=== PATIENT | male | born 1995 | race Asian ===

== ENCOUNTER 2017-01-01 12:56 | Outpatient (CLI) | payer OTHER ==
[2017-01-01 13:40] LABS: BASOPHILS # (AUTO) 0.2 K/uL (0.00-0.22); EOSINOPHILS # (AUTO) 0.3 K/uL (0-0.4); EOSINOPHILS % (AUTO) 4.1 % (0.0-4.0); HEMATOCRIT 43.4 % (36-52); HEMOGLOBIN 14.4 g/dL (12.0-18.0); LYMPHOCYTES # (AUTO) 1.9 K/uL (2.0-11.5); LYMPHOCYTES % (AUTO) 31.1 % (20.5-51.1); MEAN CORPUSCULAR HEMOGLOBIN 29 pg (27-31); MEAN CORPUSCULAR HGB CONC 33 g/dL (33-37); MEAN CORPUSCULAR VOLUME 88 fL (80-94); MONOCYTES # (AUTO) 0.4 K/uL (0.8-1.0); MONOCYTES % (AUTO) 6.5 % (1.7-9.3); NEUTROPHILS # (AUTO) 3.4 K/uL (1.8-7.7); NEUTROPHILS % (AUTO) 55.3 % (42.2-75.2); PLATELET COUNT (AUTO) 250 K/uL (140-450); RED BLOOD CELL COUNT(AUTO) 4.92 MIL/uL (4.20-6.10); RED CELL DISTRIBUTION WIDTH 13.1 % (11.6-13.7); WHITE BLOOD COUNT (AUTO) 6.2 K/uL (4.8-10.8)
[2017-01-01 13:41] LABS: APPEARANCE,URINE CLEAR (CLEAR); BILIRUBIN,URINE NEGATIVE (NEGATIVE); BLOOD, URINE NEGATIVE (NEGATIVE); COLOR,URINE YELLOW (YELLOW); LEUKOCYTE ESTERASE ,URINE NEGATIVE (NEGATIVE); NITRITE, URINE NEGATIVE (NEGATIVE); PROTEIN,URINE NEGATIVE (NEGATIVE); UGLUCOSE NEGATIVE (NEGATIVE); UROBILINOGEN,URINE 0.2 EU/dL (0.2 - 1)
[2017-01-01 14:15] LABS: ALBUMIN 3.9 g/dL (3.4-5.0); ANION GAP 13.4 (8-16); CALCIUM 8.5 mg/dL (8.5-10.1); CARBON DIOXIDE 29.8 mmol/L (21-32); FREE T4 (FREE THYROXINE) 0.83 ng/dL (0.76-1.46); POTASSIUM 4.2 mmol/L (3.5-5.1); THYROID STIMULATING HORMONE 2.06 uIU/mL (0.34-3.76); TOTAL BILIRUBIN 0.5 mg/dL (0.0-1.0); TOTAL PROTEIN, SERUM 7.6 g/dL (6.4-8.2)
[2017-01-02 09:11] LABS: HEMOGLOBIN A1C 5.6 % (4.8-5.6)
[2017-01-02 10:08] LABS: HIV 1/0/2 ABS, QUAL Non Reactive (Non Reactive)
== END 2017-01-01 20:00 | disposition home or self-care (01) ==
LOC: MLB 12:56
DX: Z00.00 Encounter for general adult medical examination without abnormal findings (principal); A64 Unspecified sexually transmitted disease; E03.9 Hypothyroidism, unspecified
CPT/HCPCS: 36415; 80053; 81003; 83036; 84439; 84443; 85025; 86694; 86702; 87491

== ENCOUNTER 2020-12-01 12:53 | Emergency (ER) | payer OTHER ==
[~2020-12-01] VITALS: Ht 162.6 cm; Wt 82.6 kg
[2020-12-01 12:58] VITALS: BP 151/95
--- NOTE | 2020-12-01 13:00 | NUR ---
25 YEAR OLD MALE COMPLAINS OF ON/OFF HEART PALPITATIONS THAT STARTED IN THE MORNING. PT STATES THAT THEY STARTED BECOMING ON/OFF STARTING X 2 MONTHS AGO. PT DENIES ANY PAIN, JUST DISCOMFORT. PT STATES SOME DIZZINESS AT TIMES. PT AOX4, BREATHING EVEN AND UNLABORED, SKIN WARM AND DRY. BED IN LOWEST POSITION, LOCKED, BED RAIL UPX1. PMH - ASTHMA ALLERGIES - NKA
--- NOTE | 2020-12-01 14:55 | NUR ---
Patient discharged with v/s stable. Written and verbal after care instructions about palpitations given and explained. Patient verbalized understanding. Ambulatory with steady gait. All questions addressed prior to discharge. Advised to follow up with PMD.
[2020-12-01 14:58] VITALS: BP 151/95
== END 2020-12-01 14:55 | disposition home or self-care (01) ==
LOC: MED 12:53
DX: R00.2 Palpitations (principal); R06.02 Shortness of breath; R03.0 Elevated blood-pressure reading, without diagnosis of hypertension; J45.909 Unspecified asthma, uncomplicated
CPT/HCPCS: 71045; 93005; 99283